=== PATIENT | female | born 1970 | race Caucasian/White ===

== ENCOUNTER 2017-05-08 08:00 | Outpatient (CLI) | payer BC ==
[2017-05-08 17:58] LABS: BASOPHILS % (AUTO) 0.5 %; EOSINOPHILS # (AUTO) 0.1 10^3/uL (0.0-0.7); EOSINOPHILS % (AUTO) 1.9 %; HCT - HEMATOCRIT 44.1 % (37.0-47.0); HGB - HEMOGLOBIN 14.7 g/dL (12.0-16.0); LYMPHOCYTES # (AUTO) 1.6 10^3/uL (1.5-3.5); LYMPHOCYTES % (AUTO) 20.3 %; MEAN CORPUSCULAR HEMOGLOBIN 32.6 pg (27.0-31.0); MEAN CORPUSCULAR HGB CONC 33.3 g/dL (32.0-36.0); MEAN CORPUSCULAR VOLUME 97.8 fL (81.0-99.0); MEAN PLATELET VOLUME 8.4 fL (7.9-10.8); MONOCYTES # (AUTO) 0.9 10^3/uL (0.0-1.0); MONOCYTES % (AUTO) 11.9 %; NEUTROPHILS % (AUTO) 65.4 %; RED BLOOD COUNT 4.51 10^6/uL (4.20-5.40); RED CELL DISTRIBUTION WIDTH 12.8 % (12.0-15.0); UNCORRECTED WHITE BLOOD COUNT 7.6 x10^3/uL; WHITE BLOOD COUNT 7.6 x10^3/uL (4.8-10.8)
[2017-05-08 18:20] LABS: ALBUMIN/GLOBULIN RATIO 1.8 (1.0-2.2); BILIRUBIN,TOTAL 0.6 mg/dL (0.2-1.0); BUN - BLOOD UREA NITROGEN 17 mg/dL (6-20); CALCIUM 9.2 mg/dL (8.5-10.3); CARBON DIOXIDE - CO2 26 mmol/L (21-32); CHLORIDE 102 mmol/L (101-111); CREATININE 0.9 mg/dL (0.4-1.0); GFR - MDRD 67 (>89); GLUCOSE 86 mg/dL (70-100); IRON 218 ug/dL (28-170); MAGNESIUM 2.2 mg/dL (1.7-2.8); POTASSIUM 4.4 mmol/L (3.5-5.0); SODIUM 135 mmol/L (135-145); TOTAL IRON BINDING CAPACITY 335 ug/dL (250-450); TRANSFERRIN 239 mg/dL (192-382)
[2017-05-08 18:28] LABS: THYROID STIMULATING HORMONE 0.79 uIU/mL (0.34-5.60)
[2017-05-08 18:34] LABS: FERRITIN 53.6 ng/mL (11.0-306.8)
== END 2017-05-08 08:01 | disposition home or self-care (01) ==
LOC: LAB.F 08:00
PROVIDERS: ATTEND Physician Assistant Medical
DX: Z00.00 Encounter for general adult medical examination without abnormal findings (principal); E55.9 Vitamin D deficiency, unspecified; D64.9 Anemia, unspecified; R25.2 Cramp and spasm
CPT/HCPCS: 36415; 80053; 82306; 82728; 83540; 83735; 84443; 84466; 85025

== ENCOUNTER 2017-05-22 13:13 | Outpatient (CLI) | payer BC ==
--- NOTE | 2017-05-23 09:58 | Mammography Report ---
DIGITAL BILATERAL SCREENING MAMMOGRAM: 05/22/2017 COMPARISON STUDY: Mammogram 01/12/2010. INDICATION: Screening mammography. TECHNIQUE: Routine CC and MLO projections were obtained of the breasts. FINDINGS: Parenchymal tissue within both breasts is extremely dense, which lowers the sensitivity of mammography; however, there are no dominant masses, suspicious microcalcifications, or secondary sig ns of malignancy. In comparison to the previous studies, there are no significant changes. IMPRESSION: No mammographic evidence of malignancy. PLAN: Screening mammography is recommended annually. BIRADS category 1 - negative. STANDARD QUALIFYING STATEMENTS 1. This examination was reviewed with the aid of Computed-Aided Detection (CAD). 2. A negative or benign imaging report should not delay biopsy if clinically suspicious findings are present. Consider surgical consultation if warranted. More than 5% of cancers are not identified by i maging. 3. Dense breasts may obscure an underlying neoplasm. JOB #: [id number] EXT JOB #:[id number]
== END 2017-05-22 13:14 | disposition home or self-care (01) ==
LOC: DI.S 13:13
PROVIDERS: ATTEND Physician Assistant Medical
DX: Z12.31 Encounter for screening mammogram for malignant neoplasm of breast (principal)
CPT/HCPCS: 77067

== ENCOUNTER 2017-10-03 17:09 | Emergency (ER) | payer BC ==
[2017-10-03] MEDS ORDERED: LIDOCAINE VISCOUS 2% 15 ML UDC MM STA (17:23)
[2017-10-03] MEDS ORDERED: MAG HYDROX/AL HYDROX/SIMETH 30 ML UDC PO STA (17:23)
--- NOTE | 2017-10-03 17:26 | ED Physician Documentation ---
PD HPI ABD PAIN - Stated complaint Stated Complaint: ABD PX/N/CHEST PX - Chief complaint Chief Complaint: Abd Pain - History obtained from History obtained from: Patient, Friend - History of Present Illness Timing - onset: Other (For some time now she has had intermittent "searing" upper abdominal pain especially after eating which occasionally radiates to the chest. She thinks it is her gallbladder but really has not had it worked up. Last night she had foie gras and bone marrow and about an hour later started to get very nauseous and then overnight developed upper abdominal pain radiating to the chest which has been more long-standing and persistent than prior pain. Pain does not radiate to the back.) Review of Systems Constitutional: reports: Fatigue. denies: Fever, Chills Eyes: denies: Loss of vision, Decreased vision Cardiac: reports: Chest pain / pressure. denies: Palpitations, Pedal edema, Calf pain Respiratory: denies: Dyspnea, Cough, Hemoptysis, Wheezing GI: reports: Abdominal Pain, Nausea, Vomiting. denies: Diarrhea PD PAST MEDICAL HISTORY - Past Medical History Past Medical History: No - Present Medications Home Medications: Ambulatory Orders Medication Instructions Recorded Confirmed Omeprazole [PriLOSEC] 20 mg PO DAILY #14 capsule 10/03/17 SUMAtriptan [Imitrex] 0 mg PO ONCE 10/03/17 10/03/17 - Allergies Allergies/Adverse Reactions: Allergies Allergy/AdvReac Type Severity Reaction Status Date / Time Sulfa (Sulfonamide Allergy Unknown Verified 10/03/17 17:21 Antibiotics) - Social History Does the pt smoke?: Yes Smoking Status: Current every day smoker - Family History Family history: reports: Other (Her dad had heart disease, but she does not know the details. He by suicide in his 50s.) PD ED PE NORMAL - Vitals Vital signs reviewed: Yes - General General: Alert and oriented X 3, No acute distress - HEENT HEENT: PERRL, EOMI - Neck Neck: Supple, no meningeal sign, No bony TTP - Cardiac Cardiac: RRR, No murmur - Respiratory Respiratory: No respiratory distress, Clear bilaterally - Abdomen Abdomen: Normal bowel sounds, Soft, Other (Moderate epigastric tenderness, more in the middle of the in the right upper quadrant with negative Alves sign.) - Back Back: No CVA TTP, No spinal TTP - Derm Derm: Normal color, Warm and dry - Extremities Extremities: No deformity, No tenderness to palpate, No edema, No calf tenderness / cord - Neuro Neuro: Alert and oriented X 3, Normal speech - Psych Psych: Normal mood, Normal affect Results - Vitals Vitals: Vital Signs - 24 hr 10/03/17 10/03/17 10/03/17 17:13 18:04 18:56 Temperature 37.4 C Heart Rate 89 77 75 Respiratory 14 16 20 Rate Blood Pressure 131/80 H 123/80 105/72 O2 Saturation 100 99 98 10/03/17 19:37 Temperature Heart Rate 79 Respiratory 16 Rate Blood Pressure 119/79 O2 Saturation 97 Oxygen O2 Source Room air - EKG (time done) 1715 Rate: Rate (enter#) (84) [place]: Normal QRS: Normal Ischemia: Normal ST segments Computer interpretation: Agree with computer - Labs Labs: Laboratory Tests 10/03/17 10/03/17 10/03/17 17:40 17:40 17:40 WBC 7.6 RBC 4.33 Hgb 13.9 Hct 41.2 MCV 95.1 MCH 32.1 H MCHC 33.7 RDW 12.4 Plt Count 198 MPV 7.4 L Neut # 6.5 Lymph # 0.5 L [place] # 0.5 Eos # 0.0 Baso # 0.0 Absolute Nucleated RBC 0.01 Nucleated RBC % 0.2 Sodium 134 L Potassium 3.7 Chloride 101 Carbon Dioxide 23 Anion Gap 10.0 BUN 17 Creatinine 0.8 Estimated GFR (MDRD) 77 L Glucose 99 Calcium 8.9 Iron TIBC % Saturation Transferrin Total Bilirubin 1.1 H AST 27 ALT 20 Alkaline Phosphatase 31 L Troponin I < 0.04 Total Protein 7.0 Albumin 4.5 Globulin 2.5 Albumin/Globulin Ratio 1.8 Lipase 13 L 10/03/17 17:40 WBC RBC Hgb Hct MCV MCH MCHC RDW Plt Count MPV Neut # Lymph # [place] # Eos # Baso # Absolute Nucleated RBC Nucleated RBC % Sodium Potassium Chloride Carbon Dioxide Anion Gap BUN Creatinine Estimated GFR (MDRD) Glucose Calcium Iron 99 TIBC 350 % Saturation 28 Transferrin 250 Total Bilirubin AST ALT Alkaline Phosphatase Troponin I Total Protein Albumin Globulin Albumin/Globulin Ratio Lipase - Rads (name of study) RUQ sono Radiology: EMP read contemporaneously (1. No cholelithiasis or evidence for acute cholecystitis. 2. No biliary dilation. 3. Ringdown artifact seen likely within a few right-sided intrahepatic bile ducts may represent pneumobilia. 4. Echogenic rounded lesion in the caudate lobe of the liver may represent a small subcentimeter hemangioma. ) CT A/P Radiology: EMP read contemporaneously (Prominent mesenteric adenopathy, otherwise negative.) PD MEDICAL DECISION MAKING - ED course ED course: 47-year-old woman with upper abdominal pain, she did get significant relief with a GI cocktail but incomplete. This was followed with an ultrasound, concerning for potential biliary air so a CT was done which was negative for same but did show prominent mesenteric lymph nodes. Departure - Departure Disposition: 01 Home, Self Care Clinical Impression: Mesenteric lymphadenopathy Abdominal pain Qualifiers: Abdominal location: epigastric Qualified Code(s): R10.13 - Epigastric pain Condition: Good Record reviewed to determine appropriate education?: Yes Instructions: ED Abdominal Pain Unkn Cause Prescriptions: Omeprazole [PriLOSEC] 20 mg PO DAILY #14 capsule Comments: If not better talk with your doctor about referral for upper endoscopy. Talk with your Dr. about follow-up imaging for mesenteric adenopathy seen on CT. Return if worse.
[2017-10-03 17:47] LABS: BASOPHILS % (AUTO) 0.4 %; EOSINOPHILS % (AUTO) 0.6 %; HGB - HEMOGLOBIN 13.9 g/dL (12.0-16.0); LYMPHOCYTES # (AUTO) 0.5 10^3/uL (1.5-3.5); LYMPHOCYTES % (AUTO) 6.9 %; MEAN CORPUSCULAR HEMOGLOBIN 32.1 pg (27.0-31.0); MEAN CORPUSCULAR HGB CONC 33.7 g/dL (32.0-36.0); MEAN CORPUSCULAR VOLUME 95.1 fL (81.0-99.0); MEAN PLATELET VOLUME 7.4 fL (7.9-10.8); MONOCYTES # (AUTO) 0.5 10^3/uL (0.0-1.0); MONOCYTES % (AUTO) 6.5 %; NEUTROPHILS # (AUTO) 6.5 10^3/uL (1.5-6.6); NEUTROPHILS % (AUTO) 85.6 %; PLT - PLATELET COUNT 198 10^3/uL (130-450); RED BLOOD COUNT 4.33 10^6/uL (4.20-5.40); RED CELL DISTRIBUTION WIDTH 12.4 % (12.0-15.0); WHITE BLOOD COUNT 7.6 x10^3/uL (4.8-10.8)
[2017-10-03 18:02] LABS: ALBUMIN 4.5 g/dL (3.2-5.5); ALBUMIN/GLOBULIN RATIO 1.8 (1.0-2.2); BILIRUBIN,TOTAL 1.1 mg/dL (0.2-1.0); CALCIUM 8.9 mg/dL (8.5-10.3); CREATININE 0.8 mg/dL (0.4-1.0)
[2017-10-03 18:49] LABS: % IRON SATURATION 28 % (20-50); IRON 99 ug/dL (28-170); TOTAL IRON BINDING CAPACITY 350 ug/dL (250-450); TRANSFERRIN 250 mg/dL (192-382)
--- NOTE | 2017-10-03 18:51 | Ultrasound Report ---
EXAM: ABDOMEN ULTRASOUND LIMITED, RUQ EXAM DATE: 10/03/2017 06:34 PM. CLINICAL HISTORY: Epigastric pain. COMPARISON: None. TECHNIQUE: Real-time scanning was performed with static images obtained. FINDINGS: Liver: Subcentimeter echogenic rounded lesion seen in the caudate measuring up to 0.6 cm could've bee n a small hemangioma. 14.4 cm. Main portal vein flow: Hepatopetal. Gallbladder: Normal. No stones, wall thickening, or sonographic Alves's sign. Biliary System: CBD measures 3.3 mm. No intrahepatic or extrahepatic biliary dilation. Foci of ringdo wn artifact seen in the intrahepatic bile ducts may represent mild pneumobilia. Other: Right kidney appears unremarkable without hydronephrosis. IMPRESSION: 1. No cholelithiasis or evidence for acute cholecystitis. 2. No biliary dilation. 3. Ringdown artifact seen likely within a few right-sided intrahepatic bile ducts may represent pneum obilia. 4. Echogenic rounded lesion in the caudate lobe of the liver may represent a small subcentimeter raman ngioma. [facility] Referring Provider Line: [phone] SITE ID: [id number]
[2017-10-03] MEDS ORDERED: MORPHINE 10 MG/ML VIAL IVP STA (19:22)
[2017-10-03] MEDS ORDERED: ONDANSETRON 4 MG/2 ML VIAL IVP STA ×2 (19:33→20:29)
[2017-10-03] MEDS ORDERED: ONDANSETRON 4 MG/2 ML VIAL ONE (19:42)
[2017-10-03] MEDS ORDERED: IOPAMIDOL-300 100 ML VIAL ONE (19:44)
[2017-10-03] MEDS ORDERED: IOPAMIDOL-300 100 ML VIAL IVP ONE (20:18)
--- NOTE | 2017-10-03 20:45 | CT Report ---
EXAM: CT ABDOMEN AND PELVIS EXAM DATE: 10/03/2017 08:16 PM. CLINICAL HISTORY: Upper abdomen pain. Nausea. COMPARISONS: None. TECHNIQUE: Routine helical CT imaging was performed through the abdomen and pelvis. IV contrast: 100 ML ISOVUE 300. Enteric contrast: No. Reconstructions: Coronal and sagittal. In accordance with CT protocol optimization, one or more of the following dose reduction techniques w ere utilized for this exam: automated exposure control, adjustment of mA and/or KV based on patient s ize, or use of iterative reconstructive technique. FINDINGS: Lung Bases: Unremarkable. Liver: Normal. No masses. Gallbladder/Bile Ducts: Unremarkable. Spleen: Calcified granulomas, otherwise unremarkable. Pancreas: Normal. Adrenal Glands: Normal. Kidneys: Normal. No masses or hydronephrosis. Peritoneal Cavity/Bowel: Prominent mesenteric lymph nodes. No free fluid, free air or adenopathy. No masses or acute inflammatory process. The appendix is well visualized and normal. Pelvic Organs: Normal. The bladder and visualized pelvic organs are within normal limits. Vasculature: No aneurysms or other significant abnormality. Bones: No significant abnormality. Other: None. IMPRESSION: Prominent mesenteric lymph nodes noted, otherwise unremarkable abdomen and pelvis CT. [facility] Referring Provider Line: [phone] SITE ID: [id number]
[2017-10-03] MEDS ORDERED: PANTOPRAZOLE 40 MG TABLET PO STA (20:55)
[2017-10-03 21:19] VITALS: BP 108/76
== END 2017-10-03 21:18 | disposition home or self-care (01) ==
LOC: ED 17:09
DX: R59.0 Localized enlarged lymph nodes (principal); R10.13 Epigastric pain; F17.200 Nicotine dependence, unspecified, uncomplicated; Z82.49 Family history of ischemic heart disease and other diseases of the circulatory system
CPT/HCPCS: 36415; 74177; 76705; 80053; 83540; 83690; 84466; 84484; 85025; 93005; 96374; 96375; 96376; 99284; A9270; Q9967

== ENCOUNTER 2018-07-02 11:36 | Outpatient (CLI) | payer BC ==
--- NOTE | 2018-07-02 14:06 | XRAY Report ---
Reason: COUGTH,SHORTNESS OF BREATH,TOBACCO USE-ACTIVE Procedure Date: 07/02/2018 Accession Number: [id number] / [id number] Procedure: XR - Chest 2 View X-Ray CPT Code: 47297 FULL RESULT: EXAM: CHEST RADIOGRAPHY EXAM DATE: 07/02/2018 11:52 AM. CLINICAL HISTORY: cough, shortness of breath, tobacco use-active. COMPARISON: X-ray chest PA and lateral 08/28/2011 1:03 PM. TECHNIQUE: 2 views. FINDINGS: Lungs/Pleura: No focal opacities evident. No pleural effusion. No pneumothorax. Normal volumes. Mediastinum: Heart and mediastinal contours are unremarkable. Other: None. IMPRESSION: No acute cardiopulmonary abnormality. [facility]
== END 2018-07-02 11:37 | disposition home or self-care (01) ==
LOC: DI 11:36
PROVIDERS: ATTEND Physician Assistant Medical
DX: R05 Cough (principal); R06.02 Shortness of breath; Z72.0 Tobacco use
CPT/HCPCS: 71046

== ENCOUNTER 2019-04-03 08:00 | Outpatient (CLI) | payer BC | END 2019-04-03 08:01 | disposition home or self-care (01) | LOC: LAB.R 08:00 | PROVIDERS: ATTEND Physician Assistant Medical | DX: R30.0 Dysuria (principal) | CPT/HCPCS: 87086; 87181 ==

== ENCOUNTER 2020-07-28 08:00 | Outpatient (CLI) | payer BC | END 2020-07-28 23:59 | disposition home or self-care (01) | LOC: LAB.S 08:00 | PROVIDERS: ATTEND Emergency Medicine | DX: R05 Cough (principal); R53.83 Other fatigue; J02.9 Acute pharyngitis, unspecified; Z20.828 Contact with and (suspected) exposure to other viral communicable diseases ==

== ENCOUNTER 2020-07-28 10:52 | Emergency (ER) | payer BC ==
[2020-07-28 11:35] LABS: BASOPHILS % (AUTO) 0.5 %; EOSINOPHILS # (AUTO) 0.1 10^3/uL (0.0-0.7); EOSINOPHILS % (AUTO) 1.6 %; HGB - HEMOGLOBIN 14.9 g/dL (12.0-16.0); LYMPHOCYTES # (AUTO) 1.7 10^3/uL (1.5-3.5); LYMPHOCYTES % (AUTO) 21.8 %; MEAN CORPUSCULAR HEMOGLOBIN 33.2 pg (27.0-31.0); MEAN CORPUSCULAR HGB CONC 33.7 g/dL (32.0-36.0); MEAN CORPUSCULAR VOLUME 98.4 fL (81.0-99.0); MEAN PLATELET VOLUME 9.4 fL (7.9-10.8); MONOCYTES # (AUTO) 0.9 10^3/uL (0.0-1.0); MONOCYTES % (AUTO) 10.9 %; NEUTROPHILS # (AUTO) 5.1 10^3/uL (1.5-6.6); NEUTROPHILS % (AUTO) 64.8 %; PLT - PLATELET COUNT 225 10^3/uL (130-450); RED BLOOD COUNT 4.49 10^6/uL (4.20-5.40); RED CELL DISTRIBUTION WIDTH 11.7 % (12.0-15.0); WHITE BLOOD COUNT 7.9 x10^3/uL (4.8-10.8)
[2020-07-28 11:37] LABS: GLUCOSE, URINE (UA) NEGATIVE (NEGATIVE); KETONES,URINE (UA) 15 mg/dL (NEGATIVE); LEUKOCYTE ESTERASE, URINE NEGATIVE (NEGATIVE); NITRITE,URINE NEGATIVE (NEGATIVE); OCCULT BLOOD,URINE TRACE-LYSE (NEGATIVE); PROTEIN,URINE 30 mg/dL (NEGATIVE); UROBILINOGEN,URINE 1 (NORMAL) E.U./dL (NORMAL)
[2020-07-28 11:42] LABS: BILIRUBIN,URINE NEGATIVE (NEGATIVE); CLARITY,URINE HAZY (CLEAR); HCG UR QUAL NEGATIVE; ICTOTEST,URINE NEGATIVE
[2020-07-28 11:49] LABS: ALBUMIN 4.3 g/dL (3.2-5.5); ALBUMIN/GLOBULIN RATIO 1.3 (1.0-2.2); BILIRUBIN,TOTAL 0.7 mg/dL (0.2-1.0); CALCIUM 9.4 mg/dL (8.5-10.3); CREATININE 0.8 mg/dL (0.4-1.0); TOTAL PROTEIN 7.7 g/dL (6.7-8.2)
[2020-07-28 11:53] LABS: BACTERIA,URINE Few /HPF (None Seen); RBC,URINE 0-5 /HPF (0-5); SQUAMOUS EPITHELIAL CELL,UR FEW Squamous (<= Few)
[2020-07-28 11:54] LABS: MUCUS,URINE Few Strands
[2020-07-28] MEDS ORDERED: SODIUM CHLORIDE 0.9% 1,000 ML IV STA (13:26)
[2020-07-28] MEDS ORDERED: HYDROmorphone 1 MG/ML CARPUJECT IVP STA (13:26)
[2020-07-28] MEDS ORDERED: ONDANSETRON 4 MG/2 ML VIAL IVP STA (13:26)
[2020-07-28] MEDS ORDERED: IOVERSOL 320 100 ML VIAL IVP ONE ×2 (13:28→13:58)
--- NOTE | 2020-07-28 13:29 | ED Physician Documentation ---
History of Present Illness - Stated complaint Stated Complaint: ABDOMINAL PAIN - Chief complaint Chief Complaint: Abd Pain - History obtained from History obtained from: Patient - Additonal information Additional information: Patient comes emergency department chief complaint of left lower quadrant pain and nausea that is been going on for about the last 2 days. Patient states that the nausea had abated yesterday, but is back today. No vomiting. Patient has no personal history of diverticulitis but states that it runs in her family. She denies any fevers or chills. No change in bowel habits. No dysuria. No hematuria. She states that the pain feels like it is all over her abdomen now but that she notes a sharp pain in her left lower quadrant when she tries to move. No other complaints at this time. Review of Systems Ten Systems: 10 systems reviewed and negative Constitutional: reports: Reviewed and negative Eyes: reports: Reviewed and negative Ears: reports: Reviewed and negative Nose: reports: Reviewed and negative Throat: reports: Reviewed and negative Cardiac: reports: Reviewed and negative Respiratory: reports: Reviewed and negative GI: reports: Abdominal Pain, Nausea. denies: Vomiting, Diarrhea : reports: Reviewed and negative Skin: reports: Reviewed and negative Musculoskeletal: reports: Reviewed and negative Neurologic: reports: Reviewed and negative Psychiatric: reports: Reviewed and negative Endocrine: reports: Reviewed and negative Immunocompromised: reports: Reviewed and negative PD PAST MEDICAL HISTORY - Past Medical History Past Medical History: Yes - Past Surgical History Past Surgical History: Yes HEENT: Tonsil/Adenoidectomy - Present Medications Home Medications: Ambulatory Orders Medication Instructions Recorded Confirmed Amox/Clav 875/125 [Augmentin] 1 each PO Q12H #28 tablet 07/28/20 HYDROcod/ACETAM 5/325 [[place] 5/325] 1 - 2 ea PO Q6H PRN #15 tablet 07/28/20 - Allergies Allergies/Adverse Reactions: Allergies Allergy/AdvReac Type Severity Reaction Status Date / Time Sulfa (Sulfonamide Allergy Unknown Verified 07/28/20 11:07 Antibiotics) - Social History Does the pt smoke?: Yes Smoking Status: Current every day smoker Does the pt drink ETOH?: No Does the pt have substance abuse?: No - Immunizations Immunizations are current?: Yes PD ED PE NORMAL - Vitals Vital signs reviewed: Yes - General General: Alert and oriented X 3, No acute distress, Other (Patient appears moderately uncomfortable.) - HEENT HEENT: Atraumatic, PERRL, EOMI, Moist mucous membranes - Neck Neck: Supple, no meningeal sign - Cardiac Cardiac: RRR, No murmur - Respiratory Respiratory: No respiratory distress, Clear bilaterally - Abdomen Abdomen: Soft, Non distended, Other (Moderate tenderness left lower quadrant no rebound or guarding.) - Back Back: No CVA TTP - Derm Derm: Normal color, Warm and dry, No rash - Extremities Extremities: No deformity, No edema, No calf tenderness / cord - Neuro Neuro: Alert and oriented X 3 - Psych Psych: Normal mood, Normal affect Results - Vitals Vitals: Oxygen O2 Source Room air - Labs Labs: Laboratory Tests 07/28/20 07/28/20 07/28/20 11:20 11:29 11:29 WBC 7.9 RBC 4.49 Hgb 14.9 Hct 44.2 MCV 98.4 MCH 33.2 H MCHC 33.7 RDW 11.7 L Plt Count 225 MPV 9.4 Neut # (Auto) 5.1 Lymph # (Auto) 1.7 [place] # (Auto) 0.9 Eos # (Auto) 0.1 Baso # (Auto) 0.0 Absolute Nucleated RBC 0.00 Nucleated RBC % 0.0 Sodium 136 Potassium 3.8 Chloride 99 L Carbon Dioxide 27 Anion Gap 10.0 BUN 16 Creatinine 0.8 Estimated GFR (MDRD) 76 L Glucose 133 H Calcium 9.4 Total Bilirubin 0.7 AST 17 ALT 14 Alkaline Phosphatase 43 Total Protein 7.7 Albumin 4.3 Globulin 3.4 Albumin/Globulin Ratio 1.3 Lipase 20 L Urine Color DARK YELLOW Urine Clarity HAZY Urine pH 6.0 Ur Specific [place] 1.025 Urine Protein 30 H Urine Glucose (UA) NEGATIVE Urine Ketones 15 H Urine Occult Blood TRACE-LYSE Urine Nitrite NEGATIVE Urine Bilirubin NEGATIVE Urine Urobilinogen 1 (NORMAL) Ur Leukocyte Esterase NEGATIVE Urine RBC 0-5 Urine WBC 0-3 Ur Squamous Epith Cells FEW Squamous Urine Bacteria Few Urine Mucus Few Strands Ur Microscopic Review INDICATED Urine Culture Comments NOT INDICATED Urine HCG, Qual NEGATIVE - Rads (name of study) CT abd/pelvis Radiology: Final report received, EMP read indepedently, See rad report (diverticulitis, no perf) PD MEDICAL DECISION MAKING - ED course Complexity details: reviewed results, re-evaluated patient, considered differential, d/w patient ED course: The patient was worked up with labs, UA, and CT of the abdomen and pelvis. She was given a liter of IV fluid, as well as Zofran, Toradol, and Dilaudid for symptomatic relief. Pt was found to be feeling better. CT showed diverticulitis, and pt was started on Augmentin for this. She is stable for discharge, and we have discussed the usual indications for return. Departure - Departure Disposition: 01 Home, Self Care Clinical Impression: Diverticulitis large intestine Qualifiers: Diverticulitis bleeding: without bleeding Diverticulitis complication: without perforation or abscess Qualified Code(s): K57.32 - Diverticulitis of large intestine without perforation or abscess without bleeding Condition: Stable Instructions: ED Diverticulitis Prescriptions: Amox/Clav 875/125 [Augmentin] 1 each PO Q12H #28 tablet HYDROcod/ACETAM 5/325 [[place] 5/325] 1 - 2 ea PO Q6H PRN #15 tablet PRN Reason: Pain Comments: Your CT scan shows uncomplicated diverticulitis. You have been started on antibiotics for this in the emergency department today. You will need to continue the antibiotics for the next 2 weeks and may take the pain medication as needed. Please follow-up with your primary care physician if you do not notice any improvement at all in the next week. Discharge Date/Time: 07/28/20 14:40
[2020-07-28] MEDS ORDERED: KETOROLAC 30 MG/ML VIAL IVP STA (13:30)
--- NOTE | 2020-07-28 13:57 | CT Report ---
PROCEDURE: Abdomen/Pelvis W INDICATIONS: LLQ abd pain CONTRAST: IV CONTRAST: Optiray 320 ml: 100 PO CONTRAST: *NO PO CONTRAST TECHNIQUE: After the administration of intravenous contrast, 5 mm thick sections acquired from the diaphragms to the symphysis. 5 mm thick coronal and sagittal reformats were acquired. For radiation dose reducti on, the following was used: automated exposure control, adjustment of mA and/or kV according to brittani ent size. COMPARISON: CT abdomen and pelvis with IV contrast and abdominal ultrasound 10/03/2017. FINDINGS: Image quality: Excellent. ABDOMEN: Lung bases: Lung bases are clear. Heart size is normal. Solid organs: Liver and spleen are normal in size. Suspect subcentimeter enhancing focus in segment 2, (10/08), not definitely seen on the CT from 2018. No enhancing focus is identified in the caudate l obe. (Echogenic focus seen on prior ultrasound from 2018). Multiple calcified splenic granulomas. Gal lbladder is within normal limits. Biliary system is non dilated. Pancreas enhances normally. No ad renal nodules. Kidneys demonstrate normal size and enhancement, without hydronephrosis. Peritoneum and bowel: Small calcification adjacent to the gastric cardia, unchanged. Stomach is not distended. No small bowel obstruction. There is colonic diverticulosis. There is moderate inflammator y change adjacent to the distal sigmoid colon, ( and ). There is trace adjacent free fluid. N o loculated fluid collection is seen. No definite extraluminal gas. The appendix is within normal velásquez its. Nodes and vessels: No retroperitoneal or mesenteric adenopathy by size criteria. Aorta and inferior vena cava are normal in size. Miscellaneous: No ventral hernias. PELVIS: Genitourinary: Bladder wall thickness is normal. Small anterior exophytic uterine fibroid is unchang ed since 2018. Trace free fluid in the pelvis. Miscellaneous: No inguinal hernias or adenopathy. Bones: No suspicious bony lesions. No vertebral body compression fractures. IMPRESSION: 1. Acute diverticulitis of the distal sigmoid colon, moderate severity. No abscess. 2. No pneumoperitoneum. 3. No bowel obstruction. 4. Suspect enhancing subcentimeter focus in the left lobe of liver. This is incompletely characterize d on this single phase exam. Primary diagnostic considerations include benign hemangioma, FNH, and ad enoma. -If clinically indicated this can be further characterized with nonemergent MRI liver with Eovist con trast (preferred) or [address] Note: Echogenic focus seen in the caudate lobe of the liver on ultrasound from 2018 which could represent a similar small hemangioma. Reviewed by: Samm Charles MD on 07/28/2020 1:56 PM PST Approved by: Samm Charles MD on 07/28/2020 1:56 PM PST Station ID: [id number]
[2020-07-28] MEDS ORDERED: AMOX/CLAV 875 MG/125 MG TABLET PO STA (14:09)
[2020-07-28 14:40] VITALS: BP 111/67
== END 2020-07-28 14:40 | disposition home or self-care (01) ==
LOC: ED 10:52
DX: K57.32 Diverticulitis of large intestine without perforation or abscess without bleeding (principal); Z83.79 Family history of other diseases of the digestive system; F17.200 Nicotine dependence, unspecified, uncomplicated; R05 Cough; R53.83 Other fatigue; J02.9 Acute pharyngitis, unspecified; Z20.828 Contact with and (suspected) exposure to other viral communicable diseases
CPT/HCPCS: 36415; 74177; 80053; 81001; 81025; 83690; 85025; 87635; 96374; 96375; 99284; 99285; A9270; J1170; Q9967; 81003; 87086

== ENCOUNTER 2020-08-16 13:08 | Emergency (ER) | payer BC ==
[2020-08-16 13:39] LABS: BASOPHILS # (AUTO) 0.1 10^3/uL (0.0-0.1); BASOPHILS % (AUTO) 0.8 %; EOSINOPHILS # (AUTO) 0.1 10^3/uL (0.0-0.7); EOSINOPHILS % (AUTO) 1.8 %; HGB - HEMOGLOBIN 13.9 g/dL (12.0-16.0); LYMPHOCYTES # (AUTO) 1.9 10^3/uL (1.5-3.5); LYMPHOCYTES % (AUTO) 30.2 %; MEAN CORPUSCULAR HEMOGLOBIN 32.7 pg (27.0-31.0); MEAN CORPUSCULAR HGB CONC 33.8 g/dL (32.0-36.0); MEAN CORPUSCULAR VOLUME 96.7 fL (81.0-99.0); MEAN PLATELET VOLUME 9.5 fL (7.9-10.8); MONOCYTES # (AUTO) 0.5 10^3/uL (0.0-1.0); MONOCYTES % (AUTO) 8.7 %; NEUTROPHILS # (AUTO) 3.6 10^3/uL (1.5-6.6); NEUTROPHILS % (AUTO) 58.2 %; PLT - PLATELET COUNT 186 10^3/uL (130-450); RED BLOOD COUNT 4.25 10^6/uL (4.20-5.40); RED CELL DISTRIBUTION WIDTH 11.7 % (12.0-15.0); WHITE BLOOD COUNT 6.2 x10^3/uL (4.8-10.8)
[2020-08-16 13:42] LABS: BILIRUBIN,URINE NEGATIVE (NEGATIVE); GLUCOSE, URINE (UA) NEGATIVE (NEGATIVE); KETONES,URINE (UA) NEGATIVE (NEGATIVE); LEUKOCYTE ESTERASE, URINE NEGATIVE (NEGATIVE); NITRITE,URINE NEGATIVE (NEGATIVE); OCCULT BLOOD,URINE NEGATIVE (NEGATIVE); PROTEIN,URINE NEGATIVE (NEGATIVE); UROBILINOGEN,URINE 0.2 (NORMAL) E.U./dL (NORMAL)
[2020-08-16 13:43] LABS: CLARITY,URINE CLEAR (CLEAR)
[2020-08-16 13:44] LABS: HCG UR QUAL NEGATIVE
[2020-08-16 13:53] LABS: ALBUMIN 4.6 g/dL (3.2-5.5); ALBUMIN/GLOBULIN RATIO 1.9 (1.0-2.2); BILIRUBIN,TOTAL 0.8 mg/dL (0.2-1.0); CALCIUM 9.6 mg/dL (8.5-10.3); CREATININE 0.7 mg/dL (0.4-1.0)
--- NOTE | 2020-08-16 13:56 | ED Physician Documentation ---
History of Present Illness - Stated complaint Stated Complaint: ABDOMINAL PX - Chief complaint Chief Complaint: Abd Pain - Additonal information Additional information: 50-year-old female return to the emergency department for evaluation of p eriumbilical and lower abdominal pain. She was seen in this emergency department 07/28/2020 for left-sided abdominal pain. CT scanning showed an uncomplicated diverticulitis. Patient was prescribed a 14-day course of Augmentin. She reports that slowly with the Augmentin her symptoms improved. She finished those antibiotics 5 days ago. She reports that she was essentially pain-free until 2 days ago when she began noticing periumbilical and lower pelvic pain. She denies fevers or cough. No vomiting diarrhea or bloody stools. She reports family history of diverticulitis and her mom of diverticular complications. Patient reports to me that she thinks she might be overly worried but wants to make sure just in case. Review of Systems Constitutional: reports: Reviewed and negative Ears: reports: Reviewed and negative Nose: reports: Reviewed and negative Throat: reports: Reviewed and negative Cardiac: reports: Reviewed and negative Respiratory: reports: Reviewed and negative GI: reports: Abdominal Pain. denies: Nausea, Vomiting, Constipation, Diarrhea, Hematemesis, Bloody / black stool : denies: Dysuria, Frequency, Hesitancy Skin: reports: Reviewed and negative Musculoskeletal: reports: Reviewed and negative Neurologic: reports: Reviewed and negative PD PAST MEDICAL HISTORY - Past Medical History Past Medical History: Yes Respiratory: Asthma - Past Surgical History Past Surgical History: Yes HEENT: Tonsil/Adenoidectomy - Present Medications Home Medications: Ambulatory Orders Medication Instructions Recorded Confirmed No Known Home Medications 08/16/20 08/16/20 - Allergies Allergies/Adverse Reactions: Allergies Allergy/AdvReac Type Severity Reaction Status Date / Time Sulfa (Sulfonamide Allergy Unknown Verified 08/16/20 13:13 Antibiotics) - Social History Does the pt smoke?: Yes Smoking Status: Current every day smoker Does the pt drink ETOH?: Yes ETOH Use: Wine Does the pt have substance abuse?: No Substance Use and Type: Marijuana, CBD oil / Products - Immunizations Immunizations are current?: Yes - POLST Patient has POLST: No PD ED PE NORMAL - General General: Alert and oriented X 3, No acute distress, Well developed/nourished - Neck Neck: Supple, no meningeal sign, No adenopathy - Cardiac Cardiac: RRR, No murmur - Respiratory Respiratory: No respiratory distress - Abdomen Abdomen: Normal bowel sounds, Soft. No: Non tender (Mild tenderness periumbilical/suprapubic area without guarding or rebound.) - Back Back: No CVA TTP, No spinal TTP Results - Vitals Vitals: Vital Signs - 24 hr 08/16/20 08/16/20 08/16/20 13:12 13:28 14:46 Temperature 36.4 C L Heart Rate 82 71 72 Respiratory 20 16 16 Rate Blood Pressure 126/76 128/78 101/56 L O2 Saturation 97 99 97 Oxygen O2 Source Room air - Labs Labs: Laboratory Tests 08/16/20 08/16/20 08/16/20 13:15 13:34 13:34 WBC 6.2 RBC 4.25 Hgb 13.9 Hct 41.1 MCV 96.7 MCH 32.7 H MCHC 33.8 RDW 11.7 L Plt Count 186 MPV 9.5 Neut # (Auto) 3.6 Lymph # (Auto) 1.9 [place] # (Auto) 0.5 Eos # (Auto) 0.1 Baso # (Auto) 0.1 Absolute Nucleated RBC 0.00 Nucleated RBC % 0.0 Sodium 135 Potassium 3.8 Chloride 100 L Carbon Dioxide 26 Anion Gap 9.0 BUN 16 Creatinine 0.7 Estimated GFR (MDRD) 89 Glucose 106 H Calcium 9.6 Total Bilirubin 0.8 AST 20 ALT 17 Alkaline Phosphatase 40 L Total Protein 7.0 Albumin 4.6 Globulin 2.4 Albumin/Globulin Ratio 1.9 Lipase 28 Urine Color YELLOW Urine Clarity CLEAR Urine pH 6.0 Ur Specific [place] 1.015 Urine Protein NEGATIVE Urine Glucose (UA) NEGATIVE Urine Ketones NEGATIVE Urine Occult Blood NEGATIVE Urine Nitrite NEGATIVE Urine Bilirubin NEGATIVE Urine Urobilinogen 0.2 (NORMAL) Ur Leukocyte Esterase NEGATIVE Ur Microscopic Review NOT INDICATED Urine Culture Comments NOT INDICATED Urine HCG, Qual NEGATIVE - Rads (name of study) CT abd Radiology: Final report received (Minimal soft tissue stranding surrounding the distal sigmoid colon/rectal junction seen only on the axial images. Colonic diverticulosis without evidence for acute diverticulitis. Normal appendix. Hepatic steatosis. Stable subcentimeter hyperdense lesionof the left hepatic lobe) PD MEDICAL DECISION MAKING - ED course Complexity details: reviewed results, re-evaluated patient, considered differential, d/w patient ED course: 50-year-old female returns the emergency department for evaluation of perium bilical and lower abdominal pain. She was seen in this emergency department 07/28/2020 for abdominal pain found to have diverticulitis. She completed 14- day course of Augmentin and was pain-free for 2 days until the symptoms began. Screening labs show no significant LFT abnormalities, leukocytosis. CT scan today shows that she has diverticulosis without evidence of diverticulitis. The subcentimeter lesions seen in the lateral segment of the left hepatic lobe is unchanged. These findings were discussed with the patient and she is advised to have outpatient imaging of the liver for further differentiation of this. I have advised patient to take ibuprofen for discomfort. She is to return to the emergency department with worsening pain, fevers or bloody stools. Departure - Departure Disposition: 01 Home, Self Care Clinical Impression: Lower abdominal pain, Liver lesion Condition: Stable Record reviewed to determine appropriate education?: Yes Follow-Up: AMANDA MORATAYA PA-C [Provider Admit Priv/Credential] - Within 1 week Comments: Gretchen I hope that you are feeling better soon. I do recommend that you take ibuprofen 600 mg with food 2-3 times a day. If your pain is worsening, you have fevers black or bloody stools please return immediately to the ER. The CT scan shows diverticulosis without findings of acute diverticulitis. Your appendix appeared normal. There is a stable less than 1 cm lesion in the lateral segment of your left hepatic lobe. This was seen on previous CT imaging. This should be discussed with your primary care provider as an outpatient. You should have dedicated CT or MRI imaging of your liver to further differentiate this.
[2020-08-16] MEDS ORDERED: IOVERSOL 320 100 ML VIAL IVP ONE ×2 (14:07→14:12)
[2020-08-16 14:48] VITALS: BP 101/56
--- NOTE | 2020-08-16 14:54 | CT Report ---
PROCEDURE: Abdomen/Pelvis W INDICATIONS: lower pelvic/periumbilical pain; ? diverticulitis CONTRAST: IV CONTRAST: Optiray 320 ml: 100 PO CONTRAST: *NO PO CONTRAST TECHNIQUE: After the administration of weight appropriate dose of intravenous contrast, 5 mm thick sections acqu ired from the diaphragms to the symphysis. 5 mm thick coronal and sagittal reformats were acquired. For radiation dose reduction, the following was used: automated exposure control, adjustment of mA and/or kV according to patient size. COMPARISON: 07/28/2020 FINDINGS: Image quality: Excellent. ABDOMEN: Lung bases: Lung bases are clear. Heart size is normal. Solid organs: Liver and spleen are normal in size and enhancement. Hepatic steatosis. Stable appeara nce of subcentimeter hyperdense lesion in the lateral segment of the left hepatic lobe (image 17, ser ies 3). Gallbladder is unremarkable. Biliary system is non dilated. Pancreas enhances normally. N o adrenal nodules. Kidneys demonstrate normal size and enhancement, without hydronephrosis. Peritoneum and bowel: Bowel loops demonstrate normal wall thickness and caliber. No free fluid or a ir. Stable punctate calcification adjacent to the gastric cardia. Scant colonic diverticulosis withou t evidence for acute diverticulitis. Normal appendix. Minimal soft tissue stranding at the distal sig moid/rectal junction seen on axial images 71 through 75 but not substantiated on the coronal views, a nd is thought to represent volume averaging artifact. No abnormal fluid collections. No evidence for obstruction. Nodes and vessels: No retroperitoneal or mesenteric adenopathy by size criteria. Aorta and inferior vena cava are normal in size. Miscellaneous: Small fat-containing umbilical hernia without acute inflammation. PELVIS: Genitourinary: Bladder wall thickness is normal. Miscellaneous: No inguinal hernias or adenopathy. Bones: No suspicious bony lesions. No acute vertebral body compression fractures. IMPRESSION: 1. Minimal soft tissue stranding surrounding the distal sigmoid colon/rectal junction seen only on th e axial images and not confirmed on the orthogonal planes is favored to represent volume averaging ar tifact. However, acute mild inflammatory/inflammatory changes have a similar appearance. Otherwise, C T abdomen and pelvis without acute abnormalities. 2. Colonic diverticulosis without evidence for acute diverticulitis. 3. Normal appendix. 4. Hepatic steatosis. 5. Stable subcentimeter hyperdense lesion in the lateral segment of the left hepatic lobe possibly re presenting a small hemangioma, focal nodular hyperplasia, versus adenoma. Reviewed by: Joe Franklin MD on 08/16/2020 2:53 PM PST Approved by: Joe Franklin MD on 08/16/2020 2:53 PM PST Station ID: [id number]
== END 2020-08-16 15:18 | disposition home or self-care (01) ==
LOC: ED 13:08
DX: R10.33 Periumbilical pain (principal); K76.9 Liver disease, unspecified; K76.0 Fatty (change of) liver, not elsewhere classified; K57.30 Diverticulosis of large intestine without perforation or abscess without bleeding; Z87.19 Personal history of other diseases of the digestive system; Z83.79 Family history of other diseases of the digestive system; F17.200 Nicotine dependence, unspecified, uncomplicated
CPT/HCPCS: 36415; 74177; 80053; 81003; 81025; 83690; 85025; 99284; Q9967; 81001; 87086

== ENCOUNTER 2021-02-02 08:00 | Outpatient (CLI) | payer BC | END 2021-02-02 08:01 | disposition home or self-care (01) | LOC: LAB.S 08:00 | PROVIDERS: ATTEND Emergency Medicine | DX: R07.0 Pain in throat (principal); R05 Cough; Z20.822 Contact with and (suspected) exposure to COVID-19 | CPT/HCPCS: 87070 ==

== ENCOUNTER 2023-09-26 07:00 | Outpatient (CLI) | payer BC | END 2023-09-26 23:59 | disposition home or self-care (01) | LOC: LAB.S 07:00 | PROVIDERS: ATTEND Physician Assistant Medical | DX: J02.9 Acute pharyngitis, unspecified (principal) | CPT/HCPCS: 87070 ==

== ENCOUNTER 2023-10-01 08:00 | Outpatient (CLI) | payer BC ==
--- NOTE | 2023-10-01 16:15 | XRAY Report ---
PROCEDURE: Chest 2V INDICATIONS: ACUTE BRONCHITIS TECHNIQUE: 2 views of the chest were acquired. COMPARISON: 2 views of the chest dated 07/02/2018 FINDINGS: Surgical changes and devices: None. Lungs and pleura: There is a subtle pulmonary nodule visualized within the right upper lung. The carmen gs are otherwise clear. No pleural effusion or pneumothorax. Mediastinum: Mediastinal contours appear normal. Heart size is normal. Probable calcified right hil ar lymph nodes are redemonstrated and appears similar to the study dated 07/02/2018. Bones and chest wall: No suspicious bony lesions. Overlying soft tissues appear unremarkable. IMPRESSION: Subtle right upper lung pulmonary radiopacity. Short interval follow-up or CT of the chest recommende d. Findings suspicious for calcified hilar lymph nodes which may be associated with prior granulomatous disease. Reviewed by: Shelly Bass MD on 10/01/2023 4:14 PM PST Approved by: Shelly Bass MD on 10/01/2023 4:14 PM PST Station ID: [id number]
== END 2023-10-01 23:59 | disposition home or self-care (01) ==
LOC: DI.S 08:00
PROVIDERS: ATTEND Emergency Medicine
DX: R91.8 Other nonspecific abnormal finding of lung field (principal); J20.9 Acute bronchitis, unspecified

== ENCOUNTER 2023-12-19 08:00 | Outpatient (CLI) | payer BC | END 2023-12-19 08:01 | disposition home or self-care (01) | LOC: LAB.S 08:00 | PROVIDERS: ATTEND Registered Nurse | DX: R30.0 Dysuria (principal) | CPT/HCPCS: 87086 ==